=== PATIENT | female | born 1995 | race Caucasian/White ===

== ENCOUNTER 2021-01-05 15:39 | Emergency (ER) | payer BC, SELFPAY ==
--- NOTE | 2021-01-05 15:49 | ED.SKABFB ---
HPI - Skin/Abscess/Foreign Bdy General Chief complaint: Skin/Abscess/Foreign Body Stated complaint: Pt has a rash on the Neck Time Seen by Provider: 01/05/21 15:50 Source: patient and RN notes reviewed History of Present Illness HPI narrative: Patient is a 26-year-old female who presents the urgent care with complaints of a rash to the anterior neck. Patient states that it started on her face a few weeks ago when school started and then spread down to her neck. Patient states it is improved on the face and she has been taking oral Benadryl and using Benadryl cream, hydrocortisone cream and taking her daily allergy medication. Patient denies of any new creams, detergents, perfumes or any contact with anything new. Denies of any associated symptoms. No other acute complaints. No acute distress noted. Some parts of this dictation were generated by voice recognition software and may contain typographical and/or grammatical inaccuracies. Related Data Home Medications Medication Instructions Recorded Confirmed bupropion HCl 150 mg PO DAILY 01/05/21 01/05/21 escitalopram oxalate 20 mg PO DAILY 01/05/21 01/05/21 medroxyprogesterone 10 mg PO DAILY 01/05/21 01/05/21 montelukast 10 mg PO DAILY 01/05/21 01/05/21 valacyclovir 500 mg PO BID 01/05/21 01/05/21 Allergies Allergy/AdvReac Type Severity Reaction Status Date / Time No Known Allergies Allergy Verified 01/05/21 15:59 Review of Systems Review of Systems: CONSTITUTIONAL: Denies fever, chills, or sweats. EYES: Denies visual changes, redness, or discharge. ENT: Denies rhinorrhea, congestion, sore throat, or otalgia. CARDIOVASCULAR: Denies chest pain, palpitations, or edema. RESPIRATORY: Denies cough or dyspnea. GASTROINTESTINAL: Denies abdominal pain, nausea, vomiting, or diarrhea. GENITOURINARY: Denies dysuria or hematuria. SKIN: Reports of an itchy red rash to the anterior neck MUSCULOSKELETAL: Denies back pain, joint pain, or myalgia. NEUROLOGIC: Denies headache, numbness, or weakness. All other systems reviewed are negative, except as documented in HPI. [facility] Comments At the time of my signature, I reviewed and agree with the nursing past medical, surgical, social, and family history. There is no relevant family history pertinent to the patient complaint. Exam Narrative: GENERAL: This is a well-nourished, well-developed patient, in no apparent distress. HEAD: normocephalic, atraumatic. EYES: PERRL. Sclera clear/white. Vision is grossly intact. EARS: External ears normal NOSE: External nose normal with no obvious nasal discharge, nares without redness, no rhinorrhea. THROAT: Mucous membranes moist NECK: Neck supple CARDIOVASCULAR: Regular rate and rhythm without murmurs, gallops, or rubs. RESPIRATORY: Clear to auscultation. Breath sounds equal bilaterally. No wheezes, rales, or rhonchi. SKIN: Very faint nonraised erythemic dermatitis noted to the anterior neck/chest. Warm, intact with no suspicious lesions or rash, good texture and turgor. NEURO: awake, alert, and oriented to person, place and time. There were no obvious focal neurologic abnormalities. EXTREMITIES: No clubbing, cyanosis, or edema. Course Vital Signs Vital signs: Vital Signs Temperature 98.5 F 01/05/21 15:50 Pulse Rate 69 01/05/21 15:50 Respiratory Rate 16 01/05/21 15:50 Blood Pressure 113/73 01/05/21 15:50 Pulse Oximetry 100 01/05/21 15:50 Temperature 98.5 F 01/05/21 15:50 Pulse Rate 69 01/05/21 15:50 Respiratory Rate 16 01/05/21 15:50 Blood Pressure 113/73 01/05/21 15:50 Pulse Oximetry 100 01/05/21 15:50 Reviewed MDM - Skin/Abscess/Foreign Bdy MDM Narrative Medical decision making narrative: Advised the patient to use the prescription cream to the affected area avoiding near the eyes, underarms and groin. May continue to use [id number] allergy medication as well as Benadryl as needed. If you develop no relief after 2 days of the ointment use, may st
[2021-01-05 15:50] VITALS: BP 113/73; PULSE 69; RESP 16; TEMP 36.9; O2SAT 100
== END 2021-01-05 16:05 | disposition home or self-care (01) ==
PROVIDERS: Emergency Provider Nurse Practitioner Family; PCP Internal Medicine
DX: L25.9 Unspecified contact dermatitis, unspecified cause (principal); F41.9 Anxiety disorder, unspecified; F32.9 Major depressive disorder, single episode, unspecified
CPT/HCPCS: 99213; G0463

== ENCOUNTER 2021-04-07 16:14 | Emergency (ER) | payer BC, SELFPAY ==
[2021-04-07 16:25] VITALS: BP 110/68; PULSE 77; RESP 14; TEMP 36.8; O2SAT 100
--- NOTE | 2021-04-07 16:29 | ED.EAR ---
HPI - Ear Problem General Chief complaint: Ear Stated complaint: Ear Pain Time Seen by Provider: 04/07/21 16:29 Source: patient and RN notes reviewed History of Present Illness HPI Narrative: Patient is a 26-year-old female who presents the urgent care with complaints of bilateral ear pain, feeling like she is underwater, for the last 2 to 3 weeks. Patient states she is used warm and cool compresses, Flonase, Singulair, DayQuil, NyQuil and Zyrtec without much relief. Patient states she has now developed a slight headache and sinus pressure. Denies any fever, chills, nausea, vomiting. Denies of sore throat. No other acute complaints. No acute distress noted. Patient read the plan of care. Some parts of this dictation were generated by voice recognition software and may contain typographical and/or grammatical inaccuracies. Related Data Home Medications Medication Instructions Recorded Confirmed escitalopram oxalate 20 mg PO DAILY 01/05/21 04/07/21 montelukast 10 mg PO DAILY 01/05/21 04/07/21 valacyclovir 500 mg PO BID 01/05/21 04/07/21 fluticasone propionate [Flonase] 2 spray INTRANASAL DAILY 04/07/21 04/07/21 Allergies Allergy/AdvReac Type Severity Reaction Status Date / Time No Known Allergies Allergy Verified 04/07/21 16:28 Review of Systems Review of Systems: CONSTITUTIONAL: Denies fever, chills, or sweats. EYES: Denies visual changes, redness, or discharge. ENT: Reports a mild sinus pressure and bilateral otalgia CARDIOVASCULAR: Denies chest pain, palpitations, or edema. RESPIRATORY: Denies cough or dyspnea. GASTROINTESTINAL: Denies abdominal pain, nausea, vomiting, or diarrhea. GENITOURINARY: Denies dysuria or hematuria. SKIN: Denies rash or itching. MUSCULOSKELETAL: Denies back pain, joint pain, or myalgia. NEUROLOGIC: Reports of intermittent headaches All other systems reviewed are negative, except as documented in HPI. [facility] Comments At the time of my signature, I reviewed and agree with the nursing past medical, surgical, social, and family history. There is no relevant family history pertinent to the patient complaint. Exam Narrative: GENERAL: This is a well-nourished, well-developed patient, in no apparent distress. HEAD: normocephalic, atraumatic. EYES: PERRL. Sclera clear/white. Vision is grossly intact. EARS: External ears normal, auditory canals clear and without drainage, mild fluid noted behind bilateral TMs without otitis. TMs normal without perforation. Hearing grossly intact. NOSE: External nose normal with no obvious nasal discharge, nares without redness, no rhinorrhea. THROAT: Mucous membranes moist, posterior pharynx clear. Mild postnasal drainage NECK: Neck supple, non-tender without lymphadenopathy, masses or thyromegaly. CARDIOVASCULAR: Regular rate and rhythm without murmurs, gallops, or rubs. RESPIRATORY: Clear to auscultation. Breath sounds equal bilaterally. No wheezes, rales, or rhonchi. SKIN: warm, intact with no suspicious lesions or rash, good texture and turgor. NEURO: awake, alert, and oriented to person, place and time. There were no obvious focal neurologic abnormalities. EXTREMITIES: No clubbing, cyanosis, or edema. Course Vital Signs Vital signs: Vital Signs Temperature 98.2 F 04/07/21 16:25 Pulse Rate 77 04/07/21 16:25 Respiratory Rate 14 04/07/21 16:25 Blood Pressure 110/68 04/07/21 16:25 Pulse Oximetry 100 04/07/21 16:25 Temperature 98.2 F 04/07/21 16:30 Pulse Rate 77 04/07/21 16:30 Respiratory Rate 14 04/07/21 16:30 Blood Pressure 110/68 04/07/21 16:30 Pulse Oximetry 100 04/07/21 16:30 Reviewed Medical Decision Making MDM Narrative Medical decision making narrative: Advised the patient to continue daily antihistamine as well as Flonase and Benadryl prior to bedtime. Complete the steroid regimen as prescribed. Use Tylenol/ibuprofen as needed for pain. Do not use the [id number] eardrops. May continue warm darvin
[2021-04-07 16:30] VITALS: BP 110/68; PULSE 77; RESP 14; TEMP 36.8; O2SAT 100
== END 2021-04-07 16:42 | disposition home or self-care (01) ==
PROVIDERS: Emergency Provider Nurse Practitioner Family; PCP Internal Medicine
DX: H92.03 Otalgia, bilateral (principal)
CPT/HCPCS: 99213; G0463

== ENCOUNTER 2021-05-16 12:36 | Emergency (ER) | payer BC, SELFPAY ==
--- NOTE | ~2021-05-16 | XR_ITS ---
EXAMINATION: XR foot LT min 3V DATE: 05/16/2021 13:04 INDICATION: Left foot inversion injury and pain. TECHNIQUE: 4 views of left foot were obtained. COMPARISON: None. FINDINGS: Bone alignment is normal. There is a chip fracture of dorsal lateral aspect of anterior pro cess of calcaneus. Joint spaces are normal. There is an enthesophyte at plantar aspect of calcaneal t uberosity. IMPRESSION: 1. Chip avulsion fracture of dorsal lateral aspect of anterior process of calcaneus. Reviewed, dictated and finalized at location A. [employer] IMPRESSION: 1. Chip avulsion fracture of dorsal lateral aspect of anterior process of calca neus.
[2021-05-16 12:40] VITALS: BP 119/69; PULSE 79; RESP 16; TEMP 36.6; O2SAT 100
--- NOTE | 2021-05-16 13:07 | ED.LOWEXIN ---
HPI - Extremity Injury (Lower) General Chief Complaint: Extremity Injury, Lower Stated Complaint: lt ankle inj Time Seen by Provider: 05/16/21 13:07 Source: patient and family History of Present Illness HPI Narrative: PATIENT HERE FOR EVALUATION OF LEFT FOOT PAIN. PATIENT SLIPPED ON ICE AND INJURED THE LATERAL SIDE OF HER LEFT FOOT. NO SWELLING NO EDEMA NO DEFORMITY. NO NUMBNESS OR TINGLING. MD complaint: foot injury Related Data Home Medications Medication Instructions Recorded Confirmed escitalopram oxalate 20 mg PO DAILY 01/05/21 04/07/21 montelukast 10 mg PO DAILY 01/05/21 04/07/21 valacyclovir 500 mg PO BID 01/05/21 04/07/21 Allergies Allergy/AdvReac Type Severity Reaction Status Date / Time No Known Allergies Allergy Verified 05/16/21 13:25 Review of Systems Review of Systems: CONSTITUTIONAL: Denies fever, chills, or sweats. EYES: Denies visual changes, redness, or discharge. ENT: Denies rhinorrhea, congestion, sore throat, or otalgia. CARDIOVASCULAR: Denies chest pain, palpitations, or edema. RESPIRATORY: Denies cough or dyspnea. GASTROINTESTINAL: Denies abdominal pain, nausea, vomiting, or diarrhea. GENITOURINARY: Denies dysuria or hematuria. SKIN: Denies rash or itching. MUSCULOSKELETAL: Denies back pain, joint pain, or myalgia. NEUROLOGIC: Denies headache, numbness, or weakness. PSYCHIATRIC: Denies anxiety or depression. [facility] Comments At time of signature, agree with nursing past medical, surgical, social and family history. There is no relevant family history pertinent to the presenting complaint Exam Narrative: GENERAL: Well-appearing, well-nourished, and in no acute distress. HEAD: Normocephalic, atraumatic. EYES: PERRLA and EOMI. ENT: Nares clear, no rhinorrhea or epistaxis. Mucous membranes moist. NECK: Supple. CHEST: Clear to auscultation. No respiratory distress. HEART: Regular rate and rhythm. No murmur heard. Normal peripheral pulses. ABDOMEN: Soft, nontender, nondistended, normal active bowel sounds. EXTREMITIES: Normal range of motion. No edema. ANKLE EXAM SKIN INTACT. NORMAL DP PULSE, NORMAL CAP REFILL. NORMAL SENSATION. NORMAL DP PULSE, NORMAL CAP REFILL. NORMAL SENSATION. NVI. NO TENDERNESS TO FOOT SENSATION NVI NORMAL DORSALIS PEDIS PULSE. NORMAL MOVEMETN OF ALL TOES. NORMAL CAPILLARY REFILL. NORMAL SKIN COLOR. NO SKIN LESIONS SKIN TNTACT NO CALF PAIN NO CALF TENDERNESS NOCALF SWELLING NORMAL ROM OF KNEE.KIN INTACT. NORMAL DP PULSE, NORMAL CAP REFILL. NORMAL SENSATION. Pain to lateral side of the ankle slight swelling to area SKIN: Warm, dry, no rash. NEURO: No focal deficits. Alert and oriented x3. Bridget Coma Scale Eye Opening: Spontaneous 4 Rawson Coma Scale Motor: Obeys Commands 6 Rawson Coma Scale Verbal: Oriented 5 Bridget Coma Scale Total 15 Course Course Level of Care: Express Care Visit Vital Signs Vital signs: Vital Signs Temperature 36.6 C 05/16/21 12:40 Pulse Rate 79 05/16/21 12:40 Respiratory Rate 16 05/16/21 12:40 Blood Pressure 119/69 05/16/21 12:40 Pulse Oximetry 100 05/16/21 12:40 Temperature 36.6 C 05/16/21 12:40 Pulse Rate 79 05/16/21 12:40 Respiratory Rate 16 05/16/21 12:40 Blood Pressure 119/69 05/16/21 12:40 Pulse Oximetry 100 05/16/21 12:40 Critical dx considered and discussed with pt. Educated patient on red flag s/s and to go to ED if s/s occur. Discussed with pt when to return to Express Care or primary care provider. Pt gave verbal undertstanding, all questions were answered, and pt was agreeable to plan DISCUSSED WITH PATIENT, X-RAY FINDINGS AND THAT X-RAYS WERE NEGATIVE FOR FRACTURE OR DISLOCATIONS. X-RAYS CANNOT RULE OUT TENDON, LIGAMENT, OR SOFT TISSUE STRUCTURE INJURIES AND IF SYMPTOMS PERSIST OR WORSEN, FURTHER EVALUATION MAY BE WARRANTED FOR POTENTIAL IMAGING. ADVISED REST, ICE, COMPRESSION, AND ELEVATION. IF PRESCRIBED ANY MEDICATIONS, TAKE DIRECTED. IF PRESCRIBED MUSCLE RELAXERS, DO NOT DR
== END 2021-05-16 13:40 | disposition home or self-care (01) ==
PROVIDERS: Emergency Provider Nurse Practitioner Family; PCP Internal Medicine
DX: S92.022A Displaced fracture of anterior process of left calcaneus, initial encounter for closed fracture (principal); W00.0XXA Fall on same level due to ice and snow, initial encounter; F41.9 Anxiety disorder, unspecified; F32.9 Major depressive disorder, single episode, unspecified
CPT/HCPCS: 29515; 73630; 99214; G0463

== ENCOUNTER 2022-10-17 08:09 | Emergency (ER) | payer BC, SELFPAY ==
[2022-10-17 08:13] VITALS: BP 126/62; PULSE 84; RESP 20; TEMP 36.6; O2SAT 99
--- NOTE | 2022-10-17 08:30 | ED.GENADULT ---
HPI - General Adult General Stated complaint: Breast Pain Source: patient Mode of arrival: ambulatory Limitations: no limitations History of Present Illness HPI narrative: Patient presents for evaluation of swelling, redness, warmth, and pain to the right breast. Symptom onset two days ago. She states she recently had mastitis and nurse here informs me that she was treated with dicloxacillin. Her symptoms improved on medication. No fever, chills, nausea, vomiting. She is not diabetic. She is currently breast feeding. Denies any drainage from the site of concern. Related Data Home Medications Medication Instructions Recorded Confirmed escitalopram oxalate 10 mg tablet mg 10/17/22 10/17/22 Allergies Allergy/AdvReac Type Severity Reaction Status Date / Time No Known Allergies Allergy Verified 10/17/22 08:26 Review of Systems Review of Systems: CONSTITUTIONAL: Denies fever, chills, or sweats. EYES: Denies visual changes, redness, or discharge. ENT: Denies rhinorrhea, congestion, sore throat, or otalgia. CARDIOVASCULAR: Denies chest pain, palpitations, or edema. RESPIRATORY: Denies cough or dyspnea. BREAST: Reports swelling and pain to right breast GASTROINTESTINAL: Denies abdominal pain, nausea, vomiting, or diarrhea. GENITOURINARY: Denies dysuria or hematuria. SKIN: Reports redness and warmth to the right breast. MUSCULOSKELETAL: Denies back pain, joint pain, or myalgia. NEUROLOGIC: Denies headache, numbness, dizziness, or weakness. PSYCHIATRIC: Denies anxiety or depression. 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 HEAD: Normocephalic, atraumatic. EYES: PERRLA and EOMI. ENT: Nares clear, no rhinorrhea or epistaxis. Mucous membranes moist. Oropharynx without tonsillar hypertrophy exudate or other lesions. Bilateral TMs pearly wright nonbulging NECK: Supple. No adenopathy or masses. No carotid bruits or JVD CHEST: Clear to auscultation. No respiratory distress. No wheezes rales or rhonchi HEART: Regular rate and rhythm. No murmur heard. Normal peripheral pulses. BREAST: There is tenderness to right breast at 7-8 o'clock position. There is no underlying fluctuance. ABDOMEN: Soft, nontender, nondistended, normal active bowel sounds. EXTREMITIES: Normal range of motion. No edema. SKIN: There is erythema and warmth to the right breast at the 7-8 o'clock position NEURO: No focal deficits. Alert and oriented x3. PSYCH: Normal mood and affect. Course Course Emergency Course: This is a 27-year-old female who presents for evaluation of right-sided breast pain. Exam consistent with mastitis. I do not appreciate a drainable fluid collection. She is planning a frozen milk and can discontinue breast-feeding for now. Will discharge with Keflex and Bactrim. Follow up with primary provider. Go to the ER for worsening symptoms, fever, vomiting. Patient in agreement plan of care Level of Care: Express Care Visit Discharge Plan Discharge Clinical Impression: Mastitis Patient Disposition: Home, Self-Care
== END 2022-10-17 08:30 | disposition home or self-care (01) ==
PROVIDERS: Emergency Provider Nurse Practitioner; PCP Internal Medicine
DX: N61.0 Mastitis without abscess (principal)
CPT/HCPCS: 99213; G0463

== ENCOUNTER 2024-01-10 12:17 | Emergency (ER) | payer BC, SELFPAY ==
--- NOTE | ~2024-01-10 | XR_ITS ---
XR chest 2V 01/10/2024 13:54 Indication: Cough and shortness of breath Procedure: 2 view chest Comparison: No prior studies for comparison. Findings: Right lower lobe pneumonia. Heart size normal. Left lung clear. No pleural effusion or pneu mothorax. Impression: 1: Right lower lobe pneumonia. Reviewed, dictated and finalized at location B. Impression: 1: Right lower lobe pneumonia.
[2024-01-10 12:50] VITALS: BP 104/70; PULSE 102; RESP 16; TEMP 36.8; O2SAT 99
--- NOTE | 2024-01-10 13:38 | ED.GENADULT ---
HPI - General Adult General Chief complaint: Upper Respiratory Infection Stated complaint: SOB Time Seen by Provider: 01/10/24 13:24 Source: patient, RN notes reviewed and old records reviewed Mode of arrival: ambulatory Limitations: no limitations History of Present Illness HPI narrative: 29-year-old female to Express Care complaint of cough, shortness of breath for approximately 2 weeks. Patient reports being seen [facility] urgent care 3 days ago and being diagnosed with left ear infection and sinus infection. Patient reports concern over ongoing shortness of breath and requesting chest x-ray to rule out pneumonia. Patient denies chest pain, fever, ear pain sore throat, difficulty swallowing, weakness, allergies. Patient able to tolerate fluids by mouth. Patient resting comfortably in exam room, appears tired and acutely ill. Respirations even and non labored. Patient able to speak in complete sentences without distress. Patient in no acute distress. Related Data Home Medications Medication Instructions Recorded Confirmed escitalopram oxalate 10 mg tablet 10 mg DIRECTED 10/17/22 01/10/24 amoxicillin 875 mg-potassium 1 tablet DIRECTED 01/10/24 01/10/24 clavulanate 125 mg tablet Allergies Allergy/AdvReac Type Severity Reaction Status Date / Time No Known Allergies Allergy Verified 10/17/22 08:26 Review of Systems Review of Systems: All systems reviewed & are unremarkable except as noted in HPI and below Constitutional: Constitutional: Reports no additional constitutional complaints Eyes: Eyes: Reports no additional eye complaints ENT: Reports system reviewed and no additional complaints, except as documented Cardiovascular: Cardiovascular: Reports no additional cardiovascular complaints, Denies chest pain and Denies dyspnea Respiratory: Respiratory: Reports no additional respiratory complaints, Reports cough and Reports dyspnea Musculoskeletal: Musculoskeletal: Reports no additional musculoskeletal complaints Neurologic: Reports system reviewed and no additional complaints, except as documented Psychiatric: Psychiatric: Reports no additional psychiatric complaints [facility] Past Medical History Medical History Avulsion fracture of calcaneus Sprain of foot, left Surgical History Surgical History H/O wisdom tooth extraction 2012 per patient questionnaire Family History Family History Other Breast cancer Depression HLD (hyperlipidemia) Hypertension Ovarian cancer Social History Social History Alcohol intake: current Substance use: never Substance use type: does not use Living arrangements: with family Occupation/Education: occupation 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 There is no relevant family history pertinent to the patient complaint. Exam Const: General: cooperative, no acute distress, alert, ill appearing acutely, tired appearing, uncomfortable and well nourished Nutritional Appearance: well nourished Orientation/consciousness: patient oriented x3 Limitations: no limitations HENMT: Head: normal to inspection Ears: external ears normal Face/Nose/Sinus: Normal external nose present, Normal nares present, normal facial exam, No erythema and No edema Face and sinus: normal facial exam, no erythema and no edema Mouth: Yes Normal oral and palatal mucosa present Eyes: General: appearance normal, both eyes and all related structures Neck: Neck: normal visual inspection, full ROM and no meningeal signs Lymphatic: no lympha
== END 2024-01-10 14:55 | disposition home or self-care (01) ==
PROVIDERS: Emergency Provider Nurse Practitioner Family; PCP Internal Medicine
DX: J18.1 Lobar pneumonia, unspecified organism (principal)
CPT/HCPCS: 71046; 99213; G0463